=== PATIENT | female | born 1985 | race Caucasian/White ===

== ENCOUNTER 2016-11-18 02:48 | Emergency (ER) | payer BC ==
[2016-11-18 03:14] LABS: Urine Bilirubin Negative (NEGATIVE); Urine Blood Negative /ul (NEGATIVE); Urine Ketone Negative (NEGATIVE); Urine Nitrite Negative (NEGATIVE); Urine Protein Negative (NEGATIVE); Urine Urobilinogen Normal (NORMAL)
--- NOTE | 2016-11-18 03:27 | ERNOTE ---
Abdominal HPI - Narrative Date of Service: 11/18/16 - General Chief Complaint: Abdominal Pain Time Seen by Provider: 11/18/16 03:21 Source: patient Exam Limitations: no limitations - Immun/Allergies/Home Medications Immunizatons: IMMUNIZATION HX Immunizations Up to Date Yes History of Influenza Vaccine Yes Hx Pneumococcal Vaccination No Allergies/Adverse Reactions: Allergies Sulfa (Sulfonamide Antibiotics) Allergy (Verified 06/20/16 10:48) Hives Home Medications: HOME MEDICATIONS Hydrochlorothiazide 12.5 mg PO DAILY 06/20/16 [Last Taken Unknown] Thyroid,Pork [[place] Thyroid] 90 mg PO DAILY 06/20/16 [Last Taken Unknown] Ciprofloxacin HCl [Cipro] 500 mg PO BID #14 tablet 10/05/16 [Last Taken Unknown] HYDROcodone/ACETAMINOPHEN [Lortab 5-325 mg Tablet] 1 - 2 tab PO QID PRN #20 tablet 10/05/16 [Last Taken Unknown] oxyCODONE HCL/ACETAMINOPHEN [Percocet 5 MG/325 MG] 1 - 2 tab PO Q8H PRN #30 tab 11/18/16 [Last Taken Unknown] - History of Present Illness Date (Duration): 11/18/16 Time (Timing): 03:22 Timing: constant Quality: moderate Activities at Onset: none Modifying Factors - (Improves): Present: rest Modifying Factors - (Worsens): Present: movement Associated Symptoms: Present: fever/chills Prior Abdominal Problems: Present: other - patient 31-year-old female 3 para 3003 last menstrual period 1 week ago was had problems with right sided genitourinary infection since late September 2016. Patient currently under the care of urologist as she has been on antibiotics for nearly the entire time since initial diagnosis late September. Patient states last night around 7 PM somewhat abrupt onset right lower groin and right lower quadrant pain. Above pain is different from discomfort experienced over the last month and a half. She does feel like she was somewhat febrile took a couple of her Percocet which she had for her pyelonephritis. Review of Systems - Review of Systems Constitutional: Present: fever, chills EYE: Present: no symptoms reported ENT: Present: no symptoms reported Respiratory: Present: no symptoms reported Cardiology: Present: no symptoms reported Gastrointestinal/Abdominal: Present: abdominal pain Genitourinary: Present: pain, dysuria Musculoskeletal: Present: no symptoms reported Skin: Present: no symptoms reported Neurological: Present: no symptoms reported Endocrine: Present: no symptoms reported Hematologic/Lymphatic: Present: no symptoms reported Psych: Present: no symptoms reported - Patient's Past Medical History Patient History - Medical: Hypothyroidism, Migraines, UTI'S, Other - patient with multiple recent UTI-pyelonephritis episodes with long courses of oral antibiotics with the above. Patient with CT and ultrasound performed last few weeks negative for ureteral stones. Patient History - Cardiac/Respiratory: Hypertension Patient History - Cancer: No Hx of Cancer Patient History - Surgical Procedures: , Tubal Ligation, Other Patient History - Other: None LMP (females 10-50): last week LMP (Calendar): 09/11/16 - Social History Living Situations: spouse Abuse History: No History of abuse Psych History: No pertinent hx Smoking Status: Never smoker Have you smoked in the past 12 months: No Do you dip or chew tobacco: No Alcohol Use: none Drug Use: none - Immunizations Immunizations Up to Date: Yes Hx Pneumococcal Vaccination: No History of Influenza Vaccine: Yes Physical Exam - Physical Exam General Appearance: Present: wd/wn, alert, mild distress Eye Exam: Normal inspection: bilateral, PERRL: bilateral, EOMI: bilateral Ears, Nose, Throat: Present: normal ENT inspection, H, normal pharynx Neck: Present: normal inspection, nontender Respiratory: Present: no respiratory distress, normal breath sounds, no accessory muscle use, chest nontender, lungs clear Cardiovascular/Chest: Present: regular rate, rhythm, no murmur, normal peripheral pulses Peripheral Pulses: N=norm/S=strong/W=weak/B=bound/A=absent: Carotid (R): Normal , Carotid (L): Normal, Dorsalis-pedis (R): Normal, Dorsalis-pedis (L): Normal Gastrointestinal/Abdominal: Present: normal bowel sounds, nondistended, no organomegaly, tenderness, rebound, McBurney sign. Absent: distended, guarding, Freed sign, mass, hernia, hepatomegaly Back Exam: Present: normal inspection, normal range of motion, no CVA tenderness , no vertebral tenderness Extremity Exam: Present: normal inspection, non-tender, no edema, normal range of motion Neurological Exam: Present: alert, oriented, normal mood/affect, no motor/ sensory deficits Skin Exam: Present: normal color, warm/dry Lymphatic Exam: Present: no adenopathy ED Progress - Date and Time Seen: Date and Time: 11/18/16 06:06 Laboratory Results - last 24 hr 11/18/16 11/18/16 11/18/16 03:00 03:00 03:35 WBC 7.9 RBC 4.38 Hgb 13.7 Hct 38.9 MCV 88.8 MCH 31.3 H MCHC 35.2 RDW 12.0 Plt Count 301 MPV 9.0 Immature Gran % (Auto) 0.30 Immature Gran # (Auto) 0.02 Neutrophils % 53.6 Lymphocytes % 36.9 Monocytes % 6.4 Eosinophils % 1.9 Basophils % 0.9 Nucleated RBC % 0.0 Neutrophils # 4.2 Lymphocytes # 2.9 Monocytes # 0.5 Eosinophils # 0.2 Absolute Basophils 0.1 Sodium Plasma Sodium Potassium Chloride Carbon Dioxide Anion Gap BUN Creatinine Est GFR (Non-Af Amer) BUN/Creatinine Ratio Random Glucose Calcium Calcium Adj for Albumin Total Bilirubin AST ALT Alkaline Phosphatase Total Protein Albumin Lipase Urine Color Pale yellow Urine Appearance Clear Urine pH 7.0 Ur Specific [place] 1.010 Urine Protein Negative Urine Glucose (UA) Negative Urine Ketones Negative Urine Blood Negative Urine Nitrate Negative Urine Bilirubin Negative Urine Urobilinogen Normal Ur Leukocyte Esterase Negative Urine RBC 0-5 Urine WBC 0-5 Ur Epithelial Cells 5-10 H Urine Bacteria None seen Urine Culture Comments No culture indicated Urine HCG, Qual Negative 11/18/16 03:35 WBC RBC Hgb Hct MCV MCH MCHC RDW Plt Count MPV Immature Gran % (Auto) Immature Gran # (Auto) Neutrophils % Lymphocytes % Monocytes % Eosinophils % Basophils % Nucleated RBC % Neutrophils # Lymphocytes # Monocytes # Eosinophils # Absolute Basophils Sodium 140 Plasma Sodium 140 Potassium 3.6 Chloride 104 Carbon Dioxide 25.7 Anion Gap 13.9 H BUN 10 Creatinine 0.62 Est GFR (Non-Af Amer) 119 D BUN/Creatinine Ratio 16.1 Random Glucose 99 Calcium 8.5 Calcium Adj for Albumin 8.3 L Total Bilirubin 0.6 AST 13 ALT 59 Alkaline Phosphatase 90 Total Protein 7.0 Albumin 3.8 Lipase 97 Urine Color Urine Appearance Urine pH Ur Specific [place] Urine Protein Urine Glucose (UA) Urine Ketones Urine Blood Urine Nitrate Urine Bilirubin Urine Urobilinogen Ur Leukocyte Esterase Urine RBC Urine WBC Ur Epithelial Cells Urine Bacteria Urine Culture Comments Urine HCG, Qual CT scan abdomen and pelvis with contrast consistent with appendicitis epiploicae. Above correlates with patient's normal white blood cell count and lack of documented elevated temperatures. - Vital Signs Vital Signs: Vital Signs 11/18/16 02:49 Temperature 36.2 C L Pulse Rate 79 Respiratory 18 Rate Blood Pressure 153/97 O2 Sat by Pulse 98 Oximetry - Progress/Reassessment Chief Complaint: Abdominal Pain Departure - Departure Clinical Impression: Abdominal pain Disposition: Home self-care Condition: Good Instructions: Mesenteric Adenitis, Pediatric Additional Instructions: CAT scan shows appendicitis epiploicae which is a mimicker about abdominal appendicitis. Above condition benign treated with pain medications with resolution over 3-7 days. Should pain persist or get worse despite medications outlined below please return for reevaluation either to your primary provider or emergency room. For pain U be given Percocet 1-2 tablets every 8 hours as needed. Do not drive or perform any other potentially dangerous activities while on the above-mentioned narcotic. She developed constipation consideration for [id number] stool softener. High fluid intake and activity will also minimize chances of constipation. Referrals: Trina Peguero, HISTORIOGRAPHER [Primary Care Provider] - Prescriptions: oxyCODONE HCL/ACETAMINOPHEN [Percocet 5 MG/325 MG] 1 - 2 tab PO Q8H PRN #30 tab PRN Reason: Pain
[2016-11-18 03:29] LABS: Urine Appearance Clear; Urine Bacteria None Seen; Urine Color Pale Yellow; Urine RBC 0-5 /hpf (0-5); Urine WBC 0-5 /hpf (0-5)
[2016-11-18] MEDS ORDERED: HYDROmorphone HCL 1 MG/ML DISP.SYRIN IV ONE (03:29)
[2016-11-18] MEDS ORDERED: NORMAL SALINE 1,000 ML IV ONE (03:29)
[2016-11-18] MEDS ORDERED: HYDROmorphone HCL 1 MG/ML DISP.SYRIN ONE (03:32)
--- OUTSIDE RECORDS SUMMARY | 2016-11-18 03:36 | XMS REPORT | Continuity of Care Document ---
:1985 Author Organization [facility] ([facility]) Address [address] [place] [address] Phone [phone] Care Team Providers Name Role Phone Request, Removed At Patient Primary Care Provider Unavailable Source Comments This disclosure is being made pursuant to the Care Everywhere program, applicable federal and state laws, and may not contain all informaitonavailable regarding this patient.[facility] ([facility]) Active Allergies and Adverse Reactions Allergen Noted Date Severity Reactions Comments Sulfa (Sulfonamide Antibiotics) 11/03/2014 Rash,Shortness of breath Current Medications Prescription Sig. Disp. Refills Start Date End Date Status levothyroxine 50 Take 1 Tab by mouth 30 Tab 11 12/20/2014 Active mcg tablet every morning before breakfast. Indications: HYPOTHYROIDISM ibuprofen 800 mg Take 1 Tab (800 mg 40 Tab 3 03/25/2015 Active tablet total) by mouth every 8 hours oxyCODONE-acetamino Take 1 tablet by 20 tablet 0 06/14/2015 Active phen 5-325 mg per mouth every 4 hours tablet as needed Do Not exceed 4000 mg of acetaminophen per 24 hours. docusate 100 mg Take 1 capsule (100 60 capsule 3 07/07/2015 Active capsule mg total) by mouth 2 times daily as needed for Constipation HYDROmorphone 2 mg Take 1-2 tablets 40 tablet 0 07/07/2015 Active tablet (2-4 mg total) by mouth every 4 hours as needed for pain. Active Problems Problem Noted Date Separation of wound with drainage, 05/26/2015 Pre-eclampsia in third trimester 03/18/2015 History of classical section 11/28/2014 Overview: [X] Schedule repeat for 37 weeks Rubella non-immune status, antepartum 11/28/2014 Overview: [ ] MMR History of severe pre-eclampsia 11/03/2014 Overview: Delivered first at 28 wks by classical cs. [X] Baseline pre-eclampsia labs at [facility] Hypothyroidism 11/03/2014 Overview: Takes armour thyroid. [ ]Needs TSH q trimester Current smoker 11/03/2014 Overview: 1/2 ppd smoker at start of - desires to quit. Nicotine patches (14 mg) prescribed at [facility] Resolved Problems Problem Noted Date Resolved Date Lagging growth 03/08/2015 05/17/2015 Overview: BMTZ 03/01 & 03/02 ELIZABETH (amniotic fluid index) borderline low 02/22/2015 05/17/2015 Placental abnormality in second trimester 02/22/2015 03/08/2015 Elevated LFTs 12/02/2014 03/18/2015 Overview: RUQ ultrasound normal PAIN IN LIMB 11/09/2010 03/18/2015 Routine gynecological examination 01/06/2008 11/03/2014 Supervision of other normal 08/20/2007 05/17/2015 Overview: Social: to [place]. 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 [employer]: Desires integrated Delivery plan: RCS at 37 wks due to prior classical cs at 28 wks for severe pre-eclampsia : Contraception plan: Elevated blood pressure reading without diagnosis of 08/20/2007 03/08/2015 hypertension Unspecified complication of , antepartum 08/06/2007 11/03/2014 Unspecified hypertension antepartum 06/11/2007 11/03/2014 Immunizations Name Dates Previously Given Next Due Influenza, unspecified 09/17/2007 MMR 05/26/2015 Tdap 05/26/2015 Social History Tobacco Use Types Packs/Day Years Used Date Former Smoker Cigarettes 0.5 10 Quit: 06/16/2015 Smokeless Tobacco: Never Used Tobacco Cessation:Counseling Given: Yes Comments: Alcohol Use Drinks/Week oz/Week Comments No Last Filed Vital Signs Vital Sign Reading Time Taken Blood Pressure 119/62 07/07/2015 8:30 AM CDT Pulse 84 07/07/2015 8:30 AM CDT Temperature 37 C (98.6 F) 07/07/2015 8:30 AM CDT Respiratory Rate 18 07/07/2015 11:59 AM CDT Height 1.6 m (5' 3") 07/06/2015 4:57 PM CDT Weight 72.576 kg (160 lb) 07/06/2015 4:57 PM CDT Body Mass Index 28.35 07/06/2015 4:57 PM CDT Oxygen Saturation 99% 07/07/2015 8:30 AM CDT Plan of Care Health Maintenance Due Date Last Done Comments Hepatitis B Vaccine (1 of 3 - 1985 Primary Series) Lipid Disorder Screening 2002 Influenza Vaccine: Seasonal (#1) 05/06/2016 09/17/2007 Cervical Cancer Screening 05/17/2018 05/17/2015, 01/06/2008, 01/07/2003 Td Vaccine 05/26/2025 05/26/2015 MMR Vaccine Completed 05/26/2015 Tdap Vaccine Completed 05/26/2015 Results from Last 3 Months Not on file
[2016-11-18 03:40] LABS: Hematocrit 38.9 % (37.0-47.0); Hemoglobin 13.7 gm/dL (12.5-16.0); Mean Cell Volume 88.8 fl (78-100); Mean Corpuscular Hemoglobin 31.3 pg (27-31); Mean Corpuscular Hgb Conc 35.2 g/dl (32-36); Neutrophil # 4.2 K/mm3 (1.3-6.0); Neutrophil % 53.6 % (42-75.0); Platelet Count 301 K/mm3 (150-450); Red Blood Count 4.38 M/mm3 (4.2-5.4); White Blood Count 7.9 K/mm3 (4.0-10.5)
[2016-11-18] MEDS ORDERED: DIATRIZOATE MEGLU/DIATRIZO SOD 30 ML BTL PO ONE (03:43)
[2016-11-18] MEDS ORDERED: DIATRIZOATE MEGLU/DIATRIZO SOD 30 ML BTL ONE (03:44)
[2016-11-18 03:56] LABS: Albumin * 3.8 gm/dl (3.4-5.0); Anion Gap 13.9 mmol/L (6.8-13.8); BUN/Creatinine Ratio 16.1 (9.0-21.6); Bilirubin, Total 0.6 mg/dL (0.0-1.1); Ca. Corrected For Albumin 8.3 mg/dL (8.4-10.2); Calcium * 8.5 mg/dL (7.9-10.9); Carbon Dioxide 25.7 mmol/L (24-32.6); Potassium 3.6 mmol/L (3.4-4.6)
[2016-11-18] MEDS ORDERED: oxyCODONE HCL/ACETAMINOPHEN 1 TAB TABLET PO ONE (06:09)
[2016-11-18] MEDS ORDERED: oxyCODONE HCL/ACETAMINOPHEN 1 TAB TABLET ONE (06:12)
[2016-11-18 06:22] VITALS: BP 126/86
== END 2016-11-18 06:20 | disposition home or self-care (01) ==
LOC: SUPCPDRO 02:48 → ER 02:48
DX: R10.9 Unspecified abdominal pain (principal); Z87.440 Personal history of urinary (tract) infections